=== PATIENT | male | born 1945 | race Hispanic/Latino ===

== ENCOUNTER 2017-02-21 08:19 | Day surgery (SDC) | payer MEDICARE ==
[2017-02-13 14:22] VITALS: BMI 28.2
[2017-02-21] MEDS ORDERED: Propofol 10 mg/ml Inj (20 ML) ONE (09:48)
[2017-02-21] MEDS ORDERED: Sodium Chloride 0.9% 1,000 ML IV SCH (10:30)
[2017-02-21 10:40] VITALS: RESP 17
[2017-02-21 11:10] VITALS: BP 138/72; TEMP 97.9
[2017-02-21 13:10] VITALS: PULSE 69; O2SAT 96
== END 2017-02-21 11:50 | disposition home or self-care (01) ==
LOC: ENDO 08:19
PROVIDERS: ATTEND Internal Medicine Gastroenterology
DX: Z12.11 Encounter for screening for malignant neoplasm of colon (principal); K64.8 Other hemorrhoids; K57.30 Diverticulosis of large intestine without perforation or abscess without bleeding; I25.10 Atherosclerotic heart disease of native coronary artery without angina pectoris; Z95.5 Presence of coronary angioplasty implant and graft; I25.2 Old myocardial infarction; E11.9 Type 2 diabetes mellitus without complications; E78.5 Hyperlipidemia, unspecified; R55 Syncope and collapse; Z86.73 Personal history of transient ischemic attack (TIA), and cerebral infarction without residual deficits; Z85.828 Personal history of other malignant neoplasm of skin; Z98.890 Other specified postprocedural states; Z79.84 Long term (current) use of oral hypoglycemic drugs; Z79.899 Other long term (current) drug therapy
CPT/HCPCS: G0121; J2704; J7040 ×2

== ENCOUNTER 2018-03-28 17:09 | Emergency (ER) | payer MEDICARE, OTHER ==
[2018-03-28 17:33] VITALS: BMI 28.8
[2018-03-28 17:56] VITALS: BP 135/74; PULSE 68; RESP 18; TEMP 98; O2SAT 97
--- NOTE | 2018-03-28 17:57 | ED PDOC ---
Arrival/HPI - General Chief Complaint: Abnormal Skin Integrity Time Seen by Provider: 03/28/18 17:39 Historian: Patient - History of Present Illness Narrative History of Present Illness (Text): 03/28/18 17:54 73yo male with pmhx of dementia, diabetes, squamous cell CA s/p margin excision referred by his PMD for left leg xray. Patient states the excision was done 3weeks ago and he still have a wound on his left lower leg. States he saw the PMD today and was referred to xray of his leg. Denies fever, chills, calf pain, discharge, any other complaint. Past Medical History - Provider Review Nursing Documentation Reviewed: Yes - Infectious Disease Hx of Infectious Diseases: None - Tetanus Immunization Tetanus Immunization: Unknown - Cardiac Hx PR: Yes (x 3 stents) - Neurological Hx Paralysis: No - Endocrine/Metabolic Hx Diabetes Mellitus Type 2: Yes - Hematological/Oncological Hx Blood Transfusions: No Hx Blood Transfusion Reaction: No - Integumentary Other/Comment: Hx: skin ca - Musculoskeletal/Rheumatological Hx Musculoskeletal Disorders: No - Genitourinary/Gynecological Other/Comment: Hx: kidney stone - Psychiatric Hx Emotional Abuse: No Hx Physical Abuse: No Hx Substance Use: No - Surgical History Other/Comment: Skin biopsy / Skin CA - Anesthesia Hx Anesthesia Reactions: No - Suicidal Assessment Feels Threatened In Home Enviroment: No Family/Social History - Physician Review Nursing Documentation Reviewed: Yes Family/Social History: Unknown Family HX Smoking Status: Former Smoker Hx Alcohol Use: Yes (1 BEER /DAY) Hx Substance Use: No Hx Substance Use Treatment: No Allergies/Home Meds Allergies/Adverse Reactions: Allergies No Known Allergies Allergy (Verified 02/13/17 14:22) Home Medications: Home Meds Medication Instructions Recorded Confirmed Donepezil [Aricept] 10 mg PO QAM 03/07/16 03/28/18 Simvastatin [Zocor] 10 mg PO QAM 03/07/16 03/28/18 Aspirin [Adult Low Dose Aspirin EC] 81 mg PO QAM 02/13/17 03/28/18 Thiamine HCl [Vitamin B-1] 50 mg PO DAILY 02/13/17 03/28/18 glyBURIDE [Glyburide] 5 mg PO QAM 02/13/17 03/28/18 Review of Systems - Physician Review All systems were reviewed & negative as marked: Yes - Review of Systems Constitutional: Normal Eyes: Normal ENT: Normal Respiratory: Normal Cardiovascular: Normal Gastrointestinal: Normal Genitourinary Male: Normal Musculoskeletal: Other (LEft leg wound) Skin: Normal Neurological: Normal Endocrine: Normal Hemo/Lymphatic: Normal Psychiatric: Normal Physical Exam Vital Signs Reviewed: Yes Vital Signs Temp Pulse Resp BP Pulse Ox 03/28/18 17:55 98.0 F 68 18 135/74 97 Temperature: Afebrile Blood Pressure: Normal Pulse: Regular Respiratory Rate: Normal Appearance: Positive for: Well-Appearing, Non-Toxic, Comfortable Pain Distress: None Mental Status: Positive for: Alert and Oriented X 3 - Systems Exam Head: Present: Atraumatic, Normocephalic Pupils: Present: PERRL Extroacular Muscles: Present: EOMI Conjunctiva: Present: Normal Mouth: Present: Moist Mucous Membranes Neck: Present: Normal Range of Motion Respiratory/Chest: Present: Clear to Auscultation, Good Air Exchange. No: Respiratory Distress, Accessory Muscle Use Cardiovascular: Present: Regular Rate and Rhythm, Normal S1, S2. No: Murmurs Abdomen: No: Tenderness, Distention, Peritoneal Signs Back: Present: Normal Inspection Upper Extremity: Present: Normal Inspection. No: Cyanosis, Edema Lower Extremity: Present: NORMAL PULSES, Normal ROM, Neurovascularly Intact, Other (Clean margin wound noted on left nguyen). No: Edema, Tenderness, Swelling , Erythema, Temperature Abnormalties Neurological: Present: GCS=15, CN II-XII Intact, Speech Normal Skin: Present: Warm, Dry, Normal Color. No: Rashes Psychiatric: Present: Alert, Oriented x 3, Normal Insight, Normal Concentration Medical Decision Making ED Course and Treatment: 03/28/18 22:42 PT presented to ED for stated history. Case was DW Dr. macdonald who states he gave the pt a referral for left leg xray . Plan was to do the xray and DC pt home. PT will f/u with Dr. macdonald for result. Left tib/fib IMPRESSION: No radiographic evidence for osteomyelitis. - RAD Interpretation Radiology Orders: 03/28/18 17:53 TIBIA FIBULA LEFT [RAD] Stat Disposition/Present on Arrival - Present on Arrival Any Indicators Present on Arrival: No History of DVT/PE: No History of Uncontrolled Diabetes: No Urinary Catheter: No History of Decub. Ulcer: No History Surgical Site Infection Following: None - Disposition Have Diagnosis and Disposition been Completed?: Yes Diagnosis: Leg pain Disposition: HOME/ ROUTINE Disposition Time: 18:30 Patient Plan: Discharge Condition: STABLE Discharge Instructions (ExitCare): Muscle and Bone Pain (DC) Additional Instructions: Follow up with your doctor Return to ED for any new symptoms Referrals: Anibal Arroyo MD [Primary Care Provider] - Follow up with primary Forms: [employer] ([place]ux[place]ish)
--- NOTE | 2018-03-28 18:36 | RAD ---
Date of service: 03/28/2018 PROCEDURE: Radiographs of the left tibia and fibula. HISTORY: leg wound COMPARISON: None available. TECHNIQUE: Frontal and lateral views obtained. FINDINGS: BONES: Bone alignment and mineralization are normal. There is no acute displaced fracture or bone destruction. JOINT SPACES: Unremarkable. OTHER FINDINGS: There are atherosclerotic vascular calcifications. IMPRESSION: No radiographic evidence for osteomyelitis.
== END 2018-03-28 18:35 | disposition home or self-care (01) ==
LOC: ED 17:09
DX: M79.605 Pain in left leg (principal); E11.9 Type 2 diabetes mellitus without complications; F03.90 Unspecified dementia, unspecified severity, without behavioral disturbance, psychotic disturbance, mood disturbance, and anxiety; Z87.891 Personal history of nicotine dependence

== ENCOUNTER 2018-12-31 13:15 | Emergency (ER) | payer MEDICARE, OTHER ==
[2018-12-31 13:16] VITALS: BMI 28.8
[2018-12-31 13:21] VITALS: BP 132/77; PULSE 67; RESP 18; TEMP 97.9; O2SAT 97
--- NOTE | 2018-12-31 13:42 | ED PDOC ---
Arrival/HPI - General Historian: Patient, EMS, Police - History of Present Illness Narrative History of Present Illness (Text): 12/31/18 13:39 CC: "made a mistake" HPI: 73 yo male w/ PMH of DM2 and Alzheimer's Disease comes to the ED after being found by EMS walking down the [place] in the wrong direction. EMS states the patient was found and brought to hospital. Attempts to contact spouse and daughter were made initially by EMS team but were unsuccessful. Patient has no medical complaints currently. Family contact is being attempted while patient remains in ED. Patient currently AAOx3 and was able to discuss his past medical history with no difficulty even mentioning he has Alzheimer's. Denies fevers, chills, chest pain, sob, n/v, constipation or diarrhea, and dysuria. Time/Duration: 1-3 hours Symptom Onset: Gradual Symptom Course: Unchanged Activities at Onset: Light Context: Walking <Becca Nick - Last Filed: 12/31/18 14:08> <Griffin Gill - Last Filed: 12/31/18 20:23> - General Chief Complaint: Altered Mental Status Time Seen by Provider: 12/31/18 13:27 Past Medical History - Provider Review Nursing Documentation Reviewed: Yes - Infectious Disease Hx of Infectious Diseases: None - Tetanus Immunization Tetanus Immunization: Unknown - Cardiac Hx [place]: Yes (x 3 stents) - Neurological Hx Paralysis: No - Endocrine/Metabolic Hx Diabetes Mellitus Type 2: Yes - Hematological/Oncological Hx Blood Transfusions: No Hx Blood Transfusion Reaction: No - Integumentary Other/Comment: Hx: skin ca - Musculoskeletal/Rheumatological Hx Musculoskeletal Disorders: No - Genitourinary/Gynecological Other/Comment: Hx: kidney stone - Psychiatric Hx Emotional Abuse: No Hx Physical Abuse: No Hx Substance Use: No - Surgical History Other/Comment: Skin biopsy / Skin CA - Anesthesia Hx Anesthesia Reactions: No - Suicidal Assessment Feels Threatened In Home Enviroment: No <Becca Nick - Last Filed: 12/31/18 14:08> Family/Social History Family/Social History: No Known Family HX Smoking Status: Former Smoker Hx Alcohol Use: Yes (1 BEER /DAY) Hx Substance Use: No Hx Substance Use Treatment: No <Becca Nick - Last Filed: 12/31/18 14:08> Allergies/Home Meds <Becca Nick - Last Filed: 12/31/18 14:08> <Griffin Gill - Last Filed: 12/31/18 20:23> Allergies/Adverse Reactions: Allergies No Known Allergies Allergy (Verified 02/13/17 14:22) Home Medications: Home Meds Medication Instructions Recorded Confirmed Donepezil [Aricept] 10 mg PO QAM 03/07/16 03/28/18 Simvastatin [Zocor] 10 mg PO QAM 03/07/16 03/28/18 Aspirin [Adult Low Dose Aspirin EC] 81 mg PO QAM 02/13/17 03/28/18 Thiamine HCl [Vitamin B-1] 50 mg PO DAILY 02/13/17 03/28/18 glyBURIDE [Glyburide] 5 mg PO QAM 02/13/17 03/28/18 Review of Systems - Review of Systems Constitutional: Normal. absent: Fatigue, Weight Change Eyes: Normal. absent: Vision Changes, Photophobia ENT: Normal. absent: Hearing Changes Respiratory: Normal. absent: SOB, Cough Cardiovascular: Normal. absent: Chest Pain, Syncope Gastrointestinal: Normal. absent: Abdominal Pain Genitourinary Male: Normal. absent: Dysuria, Frequency Musculoskeletal: Normal. absent: Arthralgias, Back Pain Skin: Normal. absent: Rash, Pruritis Neurological: Normal. absent: Headache, Dizziness Endocrine: Normal. absent: Diaphoresis, Polyuria Psychiatric: Normal. absent: Anxiety, Depression <Becca Nick - Last Filed: 12/31/18 14:08> Physical Exam Vital Signs Reviewed: Yes Vital Signs Temp Pulse Resp BP Pulse Ox 12/31/18 13:20 97.9 F 67 18 132/77 97 12/31/18 13:18 98 F 65 18 132/77 98 Temperature: Afebrile Blood Pressure: Normal Pulse: Regular Respiratory Rate: Normal Appearance: Positive for: Well-Appearing, Non-Toxic, Comfortable Pain Distress: None Mental Status: Positive for: Alert and Oriented X 3 - Systems Exam Head: Present: Atraumatic, Normocephalic. No: Tenderness, Contusion Pupils: Present: PERRL Extroacular Muscles: Present: EOMI Conjunctiva: Present: Normal Mouth: Present: Moist Mucous Membranes Respiratory/Chest: Present: Clear to Auscultation, Good Air Exchange. No: Respiratory Distress, Accessory Muscle Use Cardiovascular: Present: Regular Rate and Rhythm, Normal S1, S2 Abdomen: Present: Normal Bowel Sounds. No: Tenderness, Distention Upper Extremity: Present: Normal Inspection. No: Cyanosis, Edema Lower Extremity: Present: Normal Inspection. No: Edema Neurological: Present: GCS=15, CN II-XII Intact, Speech Normal Skin: Present: Warm, Dry, Normal Color. No: Rashes Psychiatric: Present: Alert, Oriented x 3, Normal Insight, Normal Concentration <Becca Nick - Last Filed: 12/31/18 14:08> Vital Signs Temp Pulse Resp BP Pulse Ox 12/31/18 13:20 97.9 F 67 18 132/77 97 12/31/18 13:18 98 F 65 18 132/77 98 <Griffin Gill - Last Filed: 12/31/18 20:23> Medical Decision Making ED Course and Treatment: 12/31/18 13:50 Impression 73 yo male w/ PMH of DM2 and Alzheimer's Disease comes to the ED after being found by EMS walking down the [facility] in the wrong direction. Plan no pending orders Prior Visits All prior documentation and lab work reviewed prior to this evaluation Progress Notes attempting to contact family to inform them patient is at hospital 12/31/18 14:05 Spoke with patient's daughter who is a doctor out in [facility]. She was made aware of the plan that we will be watching her father in the ED unit. Daughter was amenable to the plan until someone can safely escort patient to home. 12/31/18 14:08 Officer spoke with patient's daughter who asked officer if they would be able to bring him home. Officer agreed with patient's daughter's request. Daughter said she will speak with her father as soon as he gets home and officer gave an ETA of 10 minutes. Re-evaluation Time: 14:08 Reassessment Condition: Re-examined, Unchanged <Becca Nick - Last Filed: 12/31/18 14:08> - PA / DEVELOPMENTAL THERAPIST / Resident Statement / has reviewed & agrees with the documentation as recorded. / has examined the patient and agrees with the treatment plan. <Griffin Gill - Last Filed: 12/31/18 20:23> Disposition/Present on Arrival - Present on Arrival Any Indicators Present on Arrival: No History of DVT/PE: No History of Uncontrolled Diabetes: No Urinary Catheter: No History of Decub. Ulcer: No History Surgical Site Infection Following: None - Disposition Have Diagnosis and Disposition been Completed?: Yes Disposition Time: 14:13 Patient Plan: Discharge <Becca Nick - Last Filed: 12/31/18 14:08> - Disposition Disposition Time: 13:30 <Griffin Gill - Last Filed: 12/31/18 20:23> - Disposition Diagnosis: Alzheimer disease Disposition: HOME/ ROUTINE Condition: GOOD Discharge Instructions (ExitCare): Tips for Caregivers of People With Alzheimer Disease Additional Instructions: FRANSISCO BILL, thank you for letting us take care of you today. The emergency medical care you received today was directed at your acute symptoms. If you were prescribed any medication, please fill it and take as directed. It may take several days for your symptoms to resolve. Return to the Emergency Department if your symptoms worsen, do not improve, or if you have any other problems. Please contact your doctor or call one of the physicians/clinics you have been referred to that are listed on the Patient Visit Information form that is included in your discharge packet. Bring any paperwork you were given at discharge with you along with any medications you are taking to your follow up visit. Our treatment cannot replace ongoing medical care by a primary care provider outside of the emergency department. Thank you for allowing the [facility] team to be part of your care today. Follow up with your primary care doctor this week for further management. [facility] - Follow up with primary Forms: [employer] ([place]bek)
== END 2018-12-31 14:17 | disposition home or self-care (01) ==
LOC: ED 13:15
DX: G30.9 Alzheimer's disease, unspecified (principal); I25.2 Old myocardial infarction; E11.9 Type 2 diabetes mellitus without complications; Z85.828 Personal history of other malignant neoplasm of skin; Z95.5 Presence of coronary angioplasty implant and graft; Z87.891 Personal history of nicotine dependence

== ENCOUNTER 2019-01-02 10:02 | Outpatient (CLI) | payer MEDICARE, OTHER | END 2019-01-02 10:03 | disposition home or self-care (01) | LOC: RAD 10:02 | DX: C43.9 Malignant melanoma of skin, unspecified (principal) ==